=== PATIENT | female | born 1995 | race Hispanic/Latino ===

== ENCOUNTER 2017-09-25 19:37 | Emergency (ER) | payer OTHER ==
[2017-09-25] MEDS ORDERED: ACETAMINOPHEN 325 MG TAB ONE (19:47)
== END 2017-09-25 20:13 | disposition home or self-care (01) ==
LOC: EDH 19:37
DX: S43.492A Other sprain of left shoulder joint, initial encounter (principal); Z88.1 Allergy status to other antibiotic agents; V49.59XA Passenger injured in collision with other motor vehicles in traffic accident, initial encounter; Y93.89 Activity, other specified; Y92.488 Other paved roadways as the place of occurrence of the external cause; Y99.8 Other external cause status
CPT/HCPCS: 73030